=== PATIENT | female | born 1945 | race Caucasian/White ===

== ENCOUNTER 2016-07-25 21:36 | Emergency (ER) | payer OTHER ==
--- NOTE | 2016-07-25 23:01 | EDPHY ---
H & P Stated Complaint: sob Time Seen by Provider: 07/25/16 22:42 HPI/ROS: Chief complaint: Shortness of breath HPI: 71-year-old female presenting with having had an episode of shortness of breath today. Patient states they went up to [employer] today while that she felt short of breath. This improved after she returned home to [place] and did use her 's oxygen for about 10 minutes with relief. Patient states that for the last several months she has been having episodes of shortness of breath at home which last about 10 minutes. Is not associated with any particular exertion or aggravating factors. She does have a history of a pacemaker and fibromyalgia. Does not have a history or lung or heart disease. No cough. No fevers or chills. No nausea or vomiting. Otherwise has been in her normal state of health. She has a remote history of smoking and quit in the . ROS: 10 point Review of Systems is negative except as noted in the HPI. Past medical history: Pacemaker placement Fibromyalgia Social history: Remote smoking history, no alcohol, no other recreational drugs Physical exam: Vital signs: Blood pressure is 126/62, heart rate is 71, respiratory rate 20, oxygen saturation 98% on room air, temperature is 36.3 Gen: Awake, Alert, No Distress HEENT: Nose: no rhinorrhea Eyes: PERRLA, EOMI Mouth: Moist mucosa Neck: Supple, no JVD Chest: nontender, lungs clear to auscultation Heart: S1, S2 normal, no murmur Abd: Soft, non-tender, no guarding Back: no CVA tenderness, no midline tenderness Ext: no edema, non-tender Skin: no rash Neuro: CN II-XII intact, Sensation grossly intact, Strength 5/5 in bilateral upper and lower extremities - Personal History Current Tetanus/Diphtheria Vaccine: Unsure Current Tetanus Diphtheria and Acellular Pertussis (TDAP): Unsure - Medical/Surgical History Hx Asthma: No Hx Chronic Respiratory Disease: No Hx Diabetes: No Hx Cardiac Disease: No Hx Renal Disease: No Hx Cirrhosis: No Hx Alcoholism: No Hx HIV/AIDS: No Hx Splenectomy or Spleen Trauma: No Other PMH: pacer for ramesh. femur fx repair. fibromyalgia - Social History Smoking Status: Former smoker Constitutional: Initial Vital Signs Temperature (C) 36.3 C 07/25/16 21:44 Heart Rate 71 07/25/16 21:44 Respiratory Rate 20 07/25/16 21:44 Blood Pressure 126/62 H 07/25/16 21:44 O2 Sat (%) 98 07/25/16 21:44 O2 Delivery Mode Room Air Allergies/Adverse Reactions: milk [Milk] Allergy (Verified 05/14/11 19:42) Home Medications: Medication Instructions Recorded Aspirin Unk 09/02/12 Atorvastatin Calcium [Lipitor 10 07/25/16 mg (*)] CO Q-10 07/25/16 Citalopram 07/25/16 Levothyroxine 07/25/16 Metoprolol Succinate 25 mg PO 07/25/16 Medical Decision Making - Diagnostics Imaging: Chest x-ray: Normal ED Course/Re-evaluation: Well-appearing 71-year-old female with an episode of shortness of breath when she went out to [facility] today. This resolved when she came to any surgeon 's oxygen. Her lungs are clear now. She has a normal oxygen saturation, respiratory rate. She is otherwise very well appearing. Will get a chest x- ray to rule out structural lung disease no evidence of failure. This is negative anticipate she will go home with follow up with primary care physician for pulmonary function testing and further evaluation. Patient is a normal chest x-ray. Oxygen saturations here are normal. No respiratory distress. No evidence acute cardiopulmonary process at this time. I believe her symptoms today were secondary to going to altitude. These resolved which came down. Will discharge with follow up with primary care physician on Wednesday. Return for worsening. Departure - Departure Disposition: Home, Routine, Self-Care Clinical Impression: Dyspnea Condition: Good Instructions: Dyspnea (ED) Additional Instructions: Follow up with primary care physician on Wednesday. Return for increasing shortness of breath, chest pain, fevers, chills, or any other concerns. Referrals: CHET DELGADO [Primary Care Provider] - As per Instructions
[2016-07-26 00:08] VITALS: BP 135/80; PULSE 77; RESP 16; TEMP 98.2; O2SAT 95
== END 2016-07-26 00:08 | disposition home or self-care (01) ==
DX: R06.00 Dyspnea, unspecified (principal); Z87.891 Personal history of nicotine dependence; Z79.82 Long term (current) use of aspirin